=== PATIENT | female | born 1985 | race African-American/Black ===

== ENCOUNTER 2017-11-28 18:29 | Emergency (ER) | payer SELFPAY ==
[~2017-11-28] VITALS: Ht 165.1 cm; Wt 70.3 kg
[2017-11-28 19:05] VITALS: BP 135/91
[2017-11-28 19:27] LABS: BILIRUBIN,URINE NEGATIVE (NEG); CLARITY,URINE CLEAR; COLOR,URINE YELLOW; NITRITE,URINE NEGATIVE (NEG); PROTEIN,URINE NEGATIVE (NEG-TRACE); UROBILINOGEN,URINE 0.2 mg/dL (0.2 mg/dL)
[2017-11-28 19:34] LABS: BACTERIA,URINE 0 /HPF (0-FEW); RBC,URINE 0 /HPF (0-2); SQUAMOUS EPITHELIAL CELL,UR OCC /LPF; WBC,URINE OCC /HPF (0-4)
--- NOTE | 2017-11-28 19:41 | PHYS DOC ---
Past Medical History Past Medical History: No Pertinent History Past Surgical History: No Surgical History Alcohol Use: Occasionally Drug Use: None Adult General Chief Complaint Chief Complaint: ABDOMINAL PAIN HPI HPI Patient is a 32 year old female with no significant medical history who presents today complaining of intermittent episodes of 5 out of 10 sharp right sided abdominal pain with nausea vomiting and dizziness for the last 2 weeks. Patient states her last menstrual cycle was October 11, 2017. She states she did a test at home which was positive and did a couple other tests that were negative. Patient denies any concerns for STDs. Denies any diarrhea. Denies any fever. She currently states she does not have abdominal pain. Review of Systems Review of Systems Constitutional: Denies fever or chills [] Eyes: Denies change in visual acuity, redness, or eye pain [] HENT: Denies nasal congestion or sore throat [] Respiratory: Denies cough or shortness of breath [] Cardiovascular: No additional information not addressed in HPI [] GI: Reports right-sided abdominal pain, nausea and vomiting. Denies,bloody stools or diarrhea [] : Denies dysuria or hematuria [] Musculoskeletal: Denies back pain or joint pain [] Integument: Denies rash or skin lesions [] Neurologic: Reports dizziness. Denies headache, focal weakness or sensory changes [] All other systems were reviewed and found to be within normal limits, except as documented in this note. Current Medications Current Medications Current Medications Medications (Trade) Dose Ordered Sig/Bandar Start Time Stop Time Status Last Admin Dose Admin Info (CONTRAST GIVEN -- Rx MONITORING) 1 each PRN DAILY PRN 11/28/17 20:15 11/28/17 21:45 DC Iohexol (Omnipaque 300 Mg/ml) 75 ml 1X ONCE 11/28/17 20:00 11/28/17 20:02 DC 11/28/17 21:10 75 ML Meclizine HCl (Antivert) 25 mg 1X ONCE 11/28/17 20:00 11/28/17 20:01 DC 11/28/17 20:12 25 MG Ondansetron HCl (Zofran) 4 mg 1X ONCE 11/28/17 20:00 11/28/17 20:01 DC 11/28/17 20:13 4 MG Sodium Chloride 1,000 ml @ 1,000 mls/hr 1X ONCE 11/28/17 20:00 11/28/17 20:59 DC 11/28/17 20:13 1,000 MLS/HR Allergies Allergies Allergies Coded Allergies Type Severity Reaction Last Updated Verified No Known Drug Allergies 11/28/17 No Physical Exam Physical Exam Constitutional: Well developed, well nourished, no acute distress, non-toxic appearance. [] HENT: Normocephalic, atraumatic, bilateral external ears normal, oropharynx moist, no oral exudates, nose normal. [] Eyes: PERRLA, EOMI, conjunctiva normal, no discharge. [] Neck: Normal range of motion, no tenderness, supple, no stridor. [] Cardiovascular:Heart rate regular rhythm, no murmur [] Lungs & Thorax: Bilateral breath sounds clear to auscultation [] Abdomen: Bowel sounds normal, soft, no tenderness, no masses, no pulsatile masses. [] Skin: Warm, dry, no erythema, no rash. [] Back: No tenderness, no CVA tenderness. [] Extremities: No tenderness, no cyanosis, no clubbing, ROM intact, no edema. [] Neurologic: Alert and oriented X 3, normal motor function, normal sensory function, no focal deficits noted. [] Psychologic: Affect normal, judgement normal, mood normal. [] Current Patient Data Vital Signs Vital Signs Date Time Temp Pulse Resp B/P (MAP) Pulse Ox O2 Delivery O2 Flow Rate FiO2 11/28/17 19:05 98.6 87 16 135/91 (106) 96 Room Air 98.6 Lab Values Laboratory Tests Test 11/28/17 19:20 11/28/17 19:50 Urine Color Yellow Urine Clarity Clear Urine pH 7.0 Urine Specific [place] 1.025 Urine Protein Negative mg/dL (NEG-TRACE) Urine Glucose (UA) Negative mg/dL (NEG) Urine Ketones (Stick) Negative mg/dL (NEG) Urine Blood Negative (NEG) Urine Nitrite Negative (NEG) Urine Bilirubin Negative (NEG) Urine Urobilinogen Dipstick 0.2 mg/dL (0.2 mg/dL) Urine Leukocyte Esterase Negative (NEG) Urine RBC 0 /HPF (0-2) Urine WBC Occ /HPF (0-4) Urine Squamous Epithelial Cells Occ /LPF Urine Bacteria 0 /HPF (0-FEW) Urine Test Negative (NEG) Urine Opiates Screen Neg (NEG) Urine Methadone Screen Neg (NEG) Urine Barbiturates Neg (NEG) Urine Phencyclidine Screen Neg (NEG) Urine Amphetamine/Methamphetamine Neg (NEG) Urine Benzodiazepines Screen Neg (NEG) Urine Cocaine Screen Pos (NEG) Urine Cannabinoids Screen Neg (NEG) Urine Ethyl Alcohol Pos (NEG) White Blood Count 5.8 x10^3/uL (4.0-11.0) Red Blood Count 4.81 x10^6/uL (3.50-5.40) Hemoglobin 13.4 g/dL (12.0-15.5) Hematocrit 39.5 % (36.0-47.0) Mean Corpuscular Volume 82 fL (79-100) Mean Corpuscular Hemoglobin 28 pg (25-35) Mean Corpuscular Hemoglobin Concent 34 g/dL (31-37) Red Cell Distribution Width 13.7 % (11.5-14.5) Platelet Count 333 x10^3/uL (140-400) Neutrophils (%) (Auto) 49 % (31-73) Lymphocytes (%) (Auto) 41 % (24-48) Monocytes (%) (Auto) 8 % (0-9) Eosinophils (%) (Auto) 2 % (0-3) Basophils (%) (Auto) 1 % (0-3) Neutrophils # (Auto) 2.8 x10^3uL (1.8-7.7) Lymphocytes # (Auto) 2.4 x10^3/uL (1.0-4.8) Monocytes # (Auto) 0.4 x10^3/uL (0.0-1.1) Eosinophils # (Auto) 0.1 x10^3/uL (0.0-0.7) Basophils # (Auto) 0.0 x10^3/uL (0.0-0.2) Maternal Serum HCG Beta Subunit < 1 mIU/mL (0-5) Sodium Level 138 mmol/L (136-145) Potassium Level 3.9 mmol/L (3.5-5.1) Chloride Level 102 mmol/L (98-107) Carbon Dioxide Level 26 mmol/L (21-32) Anion Gap 10 (6-14) Blood Urea Nitrogen 9 mg/dL (7-20) Creatinine 0.9 mg/dL (0.6-1.0) Estimated GFR (Cockcroft-Gault) 89.0 BUN/Creatinine Ratio 10 (6-20) Glucose Level 83 mg/dL (70-99) Calcium Level 9.1 mg/dL (8.5-10.1) Total Bilirubin 0.3 mg/dL (0.2-1.0) Aspartate Amino Transferase (AST) 27 U/L (15-37) Alanine Aminotransferase (ALT) 35 U/L (14-59) Alkaline Phosphatase 86 U/L (46-116) Total Protein 7.7 g/dL (6.4-8.2) Albumin 4.0 g/dL (3.4-5.0) Albumin/Globulin Ratio 1.1 (1.0-1.7) Lipase 100 U/L (73-393) Ethyl Alcohol Level < 10 mg/dL (0-10) Laboratory Tests 11/28/17 19:50 Laboratory Tests 11/28/17 19:50 EKG EKG [] Radiology/Procedures Radiology/Procedures []PROCEDURE: CT ABD PELV W/ IV CONTRST ONLY PQRS Compliance statement: One or more of the following individualized dose reduction techniques were utilized for this examination: 1. Automated exposure control. 2. Adjustment of the mA and/or kV according to patient size. 3. Use of iterative reconstruction technique. Indication:R SIDED ABD PAIN TECHNIQUE: CT abdomen and pelvis with IV contrast with multiplanar reformats. COMPARISON: None FINDINGS: Heart is normal in size. No pericardial or pleural effusion. Clear lung bases. Liver, spleen, gallbladder, pancreas, adrenals and kidneys are within normal limits. No enlarged retroperitoneal or pelvic adenopathy. No free pelvic fluid or ascites. No bowel obstruction. Normal appendix. No pneumoperitoneum. Anteverted uterus. Urinary bladder demonstrates no radiopaque stones. 4.5 x 3.0 cm low attenuating lesion in the right ovary most likely a simple cyst. No suspicious bony lesion. IMPRESSION: 1. No acute findings. 2. Right ovarian lesion most likely a simple cyst. Electronically signed by: Mumtaz Cervantes DO (11/28/2017 9:31 PM) [facility] DICTATED and SIGNED BY: MUMTAZ CERVANTES DO DATE: 11/28/172125 Course & Med Decision Making Course & Med Decision Making Pertinent Labs and Imaging studies reviewed. (See chart for details) This is a 32-year-old female patient presenting to the ED today with multiple complaints including dizziness, right-sided abdominal pain, nausea. Negative urine hCG, urine analysis is negative for infection, CBC CMP lipase with no acute findings, CT of the abdomen and pelvic was negative for any acute findings , noted for a simple right ovarian cyst. Patient is in no distress. She was discharged with instructions to take over-the -counter medications as needed. Follow-up with an HOME CARE ASSOCIATE for the ovarian cyst. Dragon Disclaimer Dragon Disclaimer This electronic medical record was generated, in whole or in part, using a voice recognition dictation system. Departure Departure Impression: Primary Impression: Right sided abdominal pain Additional Impressions: Nausea Ovarian cyst Nausea and vomiting Disposition: HOME, SELF-CARE Condition: STABLE Referrals: NO PCP (PCP) LOY DEL CID Jr, MD Follow-up with your HOME CARE ASSOCIATE for the ovarian cyst Patient Instructions: Abdominal Pain, Dizziness, [id number], Nausea and Vomiting, [id number], Ovarian Cyst Additional Instructions: You were evaluated in the emergency room for abdominal pain, dizziness, nausea. Your work up is negative for any acute findings. Urine noted to have a simple right ovarian cyst. Follow-up with your HOME CARE ASSOCIATE or the provided HOME CARE ASSOCIATE. Take Tylenol/ Motrin for pain. Come back to the emergency room at any point symptoms worsen. Scripts Ondansetron (ZOFRAN ODT) 4 Mg Tab.rapdis 1 TAB SL Q8HRS, #15 TAB Prov: MINDY LYNN ADEN 11/28/17 Attending Signature Attending Signature I have reviewed the PA/SUPERVISOR C[employer]OP's note and plan of care. I was available for consultation as needed during the patient's visit in the emergency department. I agree with the clinical impression, plan, and disposition. Problem Qualifiers Additional Impressions: Ovarian cyst Laterality: right Qualified Codes: N83.201 - Unspecified ovarian cyst, right side Nausea and vomiting Vomiting type: unspecified Vomiting Intractability: non-intractable Qualified Codes: R11.2 - Nausea with vomiting, unspecified MINDY LYNN ADEN Nov 28, 2017 19:41 DIDI WILKINS DO Nov 29, 2017 05:40
[2017-11-28 19:46] LABS: U PREG PATIENT NEGATIVE (NEG)
[2017-11-28] MEDS ORDERED: IOHEXOL 300 MG/ML 100ML VIAL. IV ONE (20:00)
[2017-11-28] MEDS ORDERED: IV NORMAL SALINE 1000ML BAG 1,000 ML IV ONE (20:00)
[2017-11-28] MEDS ORDERED: MECLIZINE HCL 12.5 MG TABLET. PO ONE (20:00)
[2017-11-28] MEDS ORDERED: ONDANSETRON PF 4 MG/2 ML VIAL. IV ONE (20:00)
[2017-11-28 20:01] LABS: BARBITURATES NEG (NEG); BENZODIAZEPINES NEG (NEG); CANNABINOIDS NEG (NEG); COCAINE POS (NEG); METHADONE NEG (NEG); OPIATES NEG (NEG); PHENCYCLIDINE NEG (NEG)
[2017-11-28 20:03] LABS: BASO % 1 % (0-3); EOS # 0.1 x10^3/uL (0.0-0.7); EOS % 2 % (0-3); HEMATOCRIT 39.5 % (36.0-47.0); HEMOGLOBIN 13.4 g/dL (12.0-15.5); LYMPH # 2.4 x10^3/uL (1.0-4.8); LYMPH % 41 % (24-48); MEAN CORPUSCULAR HEMOGLOBIN 28 pg (25-35); MEAN CORPUSCULAR HGB CONC 34 g/dL (31-37); MEAN CORPUSCULAR VOLUME 82 fL (79-100); MONO # 0.4 x10^3/uL (0.0-1.1); MONO % 8 % (0-9); NEUT # 2.8 x10^3uL (1.8-7.7); NEUT % 49 % (31-73); PLATELET COUNT 333 x10^3/uL (140-400); RED BLOOD COUNT 4.81 x10^6/uL (3.50-5.40); RED CELL DISTRIBUTION WIDTH 13.7 % (11.5-14.5); WHITE BLOOD COUNT 5.8 x10^3/uL (4.0-11.0)
[2017-11-28 20:05] LABS: AMPHETAMINE/METHAMPHETAMINE NEG (NEG)
[2017-11-28 20:14] LABS: CALCIUM 9.1 mg/dL (8.5-10.1); CREATININE 0.9 mg/dL (0.6-1.0); POTASSIUM 3.9 mmol/L (3.5-5.1)
[2017-11-28] MEDS ORDERED: CONTRAST GIVEN. MC PRN (20:15)
[2017-11-28 20:20] LABS: ALBUMIN/GLOBULIN RATIO 1.1 (1.0-1.7); TOTAL BILIRUBIN 0.3 mg/dL (0.2-1.0); TOTAL PROTEIN 7.7 g/dL (6.4-8.2)
--- NOTE | 2017-11-28 21:34 | RAD ---
PQRS Compliance statement: One or more of the following individualized dose reduction techniques were utilized for this examination: 1. Automated exposure control. 2. Adjustment of the mA and/or kV according to patient size. 3. Use of iterative reconstruction technique. Indication:R SIDED ABD PAIN TECHNIQUE: CT abdomen and pelvis with IV contrast with multiplanar reformats. COMPARISON: None FINDINGS: Heart is normal in size. No pericardial or pleural effusion. Clear lung bases. Liver, spleen, gallbladder, pancreas, adrenals and kidneys are within normal limits. No enlarged retroperitoneal or pelvic adenopathy. No free pelvic fluid or ascites. No bowel obstruction. Normal appendix. No pneumoperitoneum. Anteverted uterus. Urinary bladder demonstrates no radiopaque stones. 4.5 x 3.0 cm low attenuating lesion in the right ovary most likely a simple cyst. No suspicious bony lesion. IMPRESSION: 1. No acute findings. 2. Right ovarian lesion most likely a simple cyst. Electronically signed by: Mumtaz Cervantes DO (11/28/2017 9:31 PM) [facility]
[2017-11-28] MEDS ORDERED: ONDA4TAB10 SL (21:41)
== END 2017-11-28 21:45 | disposition home or self-care (01) ==
LOC: ER 18:29
DX: N83.201 Unspecified ovarian cyst, right side (principal); R42 Dizziness and giddiness; R19.7 Diarrhea, unspecified; K92.1 Melena
CPT/HCPCS: 36415; 74177; 80053; 80307; 81001; 81025; 83690; 84702; 85025; 96361; 96374; 99285; G0480; J2405; J7030; J8597; Q9967; G0479